=== PATIENT | male | born 1940 | race Caucasian/White ===

== ENCOUNTER → 2017-04-02 | Outpatient (CLI) | payer MEDICARE, OTHER ==
[~2017-04-02] MED LIST: ARICEPT10 MG PO; ASPIRIN325 MG PO; CARDURA4 MG PO; CATAPRES0.1 MG PO; COREG25 MG PO; DETROL LA4 MG PO; GLUCOPHAGE500 MG PO; GLUCOTROL XL5 MG PO; HALFPRIN81 MG PO; LEVAQUIN500 MG PO; LOTENSIN20 MG PO; NAMENDA XR28 MG PO; NORVASC10 MG PO; NOVOLOG100 UNIT/1 SUBCUT; TRESIBA FL200 UNIT/1 SUBCUT; TROSPIUM CHLORI20 MG PO
== END | disposition short-term general hospital (02) ==
LOC: CLONCO 06:55
DX: D72.820 Lymphocytosis (symptomatic) (principal); D72.829 Elevated white blood cell count, unspecified

== ENCOUNTER → 2017-05-08 | Outpatient (CLI) | payer MEDICARE, OTHER | END | disposition short-term general hospital (02) | LOC: CLONCO 04-16 08:02 | DX: C91.10 Chronic lymphocytic leukemia of B-cell type not having achieved remission (principal) ==